=== PATIENT | male | born 1980 | race Two or more races ===

== ENCOUNTER 2017-02-07 08:55 | Emergency (ER) | payer BC, MEDICAID ==
[~2017-02-07] VITALS: Ht 180.3 cm; Wt 80.7 kg
[2017-02-07 09:11] VITALS: BP 118/91
== END 2017-02-07 10:45 | disposition home or self-care (01) ==
LOC: ER 08:55
DX: S62.304A Unspecified fracture of fourth metacarpal bone, right hand, initial encounter for closed fracture (principal); S62.306A Unspecified fracture of fifth metacarpal bone, right hand, initial encounter for closed fracture; W21.05XA Struck by basketball, initial encounter; Y93.67 Activity, basketball; Y99.8 Other external cause status; Y92.89 Other specified places as the place of occurrence of the external cause
CPT/HCPCS: 29125; 73130

== ENCOUNTER 2017-06-15 18:12 | Emergency (ER) | payer MEDICAID ==
[~2017-06-15] VITALS: Ht 180.3 cm; Wt 79.4 kg
[2017-06-15] MEDS ORDERED: KETOROLAC TROMETH 60MG/2ML VIAL IM ONE (19:30)
[2017-06-15 20:03] VITALS: BP 122/40
== END 2017-06-15 20:38 | disposition home or self-care (01) ==
LOC: ER 18:18
DX: S22.31XA Fracture of one rib, right side, initial encounter for closed fracture (principal); W51.XXXA Accidental striking against or bumped into by another person, initial encounter; Y93.64 Activity, baseball; Y99.8 Other external cause status; Y92.89 Other specified places as the place of occurrence of the external cause
CPT/HCPCS: 71101